=== PATIENT | female | born 1955 | race Caucasian/White ===

== ENCOUNTER → 2018-11-08 | Outpatient (CLI) | payer SELFPAY | LOC: RAD 09:34 | PROVIDERS: ATTEND Nurse Practitioner Family | DX: E04.2 Nontoxic multinodular goiter (principal); E05.80 Other thyrotoxicosis without thyrotoxic crisis or storm ==

== ENCOUNTER → 2018-11-08 | Outpatient (CLI) | payer OTHER ==
--- NOTE | 2018-11-08 12:04 | Diagnostic Imaging Report ---
PROCEDURE: US Thyroid. TECHNIQUE: Multiple real-time grayscale images were obtained of the thyroid in various projections. INDICATION: Subclinical hyperthyroidism. COMPARISON: None available FINDINGS: The right lobe of the thyroid gland measures 4.4 x 2.2 x 1.8 cm. A solid-appearing isoechoic wider than tall nodule with circumscribed margins is noted within the superior pole of the right thyroid lobe measuring 1.0 x 0.8 cm. A similar-appearing solid slightly hypoechoic nodule is noted within the right thyroid lobe measuring just under 1 cm. The left lobe of the thyroid gland measures 4.4 x 2.1 x 1.8 cm. A solid isoechoic lobulated wider than tall nodule is present within the medial aspect of the left mid thyroid lobe. This measures 1.7 x 1.2 x 1.1 cm. Several internal microcalcifications are present. The isthmus is unremarkable. IMPRESSION: 1. Ill-defined 1.7 cm nodule with associated microcalcifications within the mid left thyroid lobe. This is consistent with a TI-RADS 4 lesion. As this measures greater than 1.5 cm, an ultrasound-guided fine-needle aspiration is recommended. 2. 1 cm solid nodules within the right lobe of the thyroid gland. Given size and appearance, a follow-up ultrasound is recommended in one year. Dictated by: Dictated on workstation # [id number]
--- NOTE | 2018-11-08 15:03 | Diagnostic Imaging Report ---
EXAMINATION: Digital mammogram bilateral screening. The current study was also evaluated with a Computer Aided Detection (CAD) system. 3-D tomosynthesis was also performed and reviewed. INDICATION: Screening. This study was compared with the prior exam of 11/12/2015. At this time, there are no current complaints. FINDINGS: There are scattered fibroglandular densities in both breasts which could obscure a lesion. When compared to the prior study, there has been no significant change. There is no primary or secondary sign of malignancy noted. The 3D tomographic views also fail to show any sign of malignancy. IMPRESSION: 1. There is no evidence of malignancy. 2. The patient should have her annual bilateral screening mammogram on schedule in November of 2019. ACR BI-RADS Category 1: Negative. Result letter will be mailed to the patient. Note: At least 10% of breast cancer is not imaged by mammography. Dictated by: Dictated on workstation # [id number]
== END ==
LOC: RAD 09:32
PROVIDERS: ATTEND Nurse Practitioner Family
DX: Z12.31 Encounter for screening mammogram for malignant neoplasm of breast (principal); E05.80 Other thyrotoxicosis without thyrotoxic crisis or storm; E04.2 Nontoxic multinodular goiter
CPT/HCPCS: 76536; 77067

== ENCOUNTER → 2021-09-06 | Outpatient (CLI) | payer MEDICARE ==
--- NOTE | 2021-09-06 18:06 | Diagnostic Imaging Report ---
Indication: Routine screening. Comparison is made with prior mammograms 11/08/2018 and 11/12/2015. 2-D and 3-D bilateral screening mammography was performed with CAD. Scattered fibroglandular densities are identified bilaterally. There are numerous benign calcifications bilaterally. There are benign nodular densities noted in both breasts. No spiculated mass or malignant-appearing microcalcifications are seen. Axillae are unremarkable. IMPRESSION: BI-RADS Category 2 No mammographic features suspicious for malignancy are identified. ACR BI-RADS Category 2: Benign findings. Result letter will be mailed to the patient. Note: At least 10% of breast cancer is not imaged by mammography. Dictated by: Dictated on workstation # [id number]
== END ==
LOC: RAD 12:45
PROVIDERS: ATTEND Nurse Practitioner Family
DX: Z12.31 Encounter for screening mammogram for malignant neoplasm of breast (principal)
CPT/HCPCS: 77063; 77067